=== PATIENT | female | born 1965 | race Caucasian/White ===

== ENCOUNTER → 2017-05-16 | Outpatient (CLI) | payer BC | LOC: RAD 09:06 | PROVIDERS: ATTEND Nurse Practitioner Family | DX: Z12.31 Encounter for screening mammogram for malignant neoplasm of breast (principal) | CPT/HCPCS: 77067 ==

== ENCOUNTER → 2018-05-21 | Outpatient (CLI) | payer BC ==
--- NOTE | 2018-05-21 15:26 | Diagnostic Imaging Report ---
INDICATION: Routine screening. COMPARISON: 05/16/2017 and 07/26/2011. TECHNIQUE: 2D and 3D bilateral screening mammography was performed with CAD. FINDINGS: Scattered fibroglandular densities are identified bilaterally. The parenchymal pattern is stable. No dominant mass or malignant appearing microcalcifications are seen. The axillae are unremarkable. IMPRESSION: No mammographic features suspicious for malignancy are identified. ACR BI-RADS Category 1: Negative. Result letter will be mailed to the patient. Note: At least 10% of breast cancer is not imaged by mammography. Dictated by: Dictated on workstation # [id number]
== END ==
LOC: RAD 07:54
PROVIDERS: ATTEND Nurse Practitioner Family
DX: Z12.31 Encounter for screening mammogram for malignant neoplasm of breast (principal)
CPT/HCPCS: 77067

== ENCOUNTER → 2019-05-23 | Outpatient (CLI) | payer BC ==
--- NOTE | 2019-05-23 15:37 | Diagnostic Imaging Report ---
INDICATION: Routine screening. COMPARISON: Comparison is made with prior mammograms from 05/21/2018 and 05/16/2017. 2-D and 3-D bilateral screening mammography was performed. The current study was also evaluated with a Computer Aided Detection (CAD) system. 3-D tomosynthesis was also performed and reviewed. FINDINGS: Scattered fibroglandular densities are identified bilaterally. There is a slightly prominent density in the medial aspect of the left breast anterior depth best seen on the CC view. No definite correlate is identified on the MLO view. Axillae are unremarkable. There is no malignant-appearing microcalcifications. IMPRESSION: Left breast density. Additional views are recommended. ACR BI-RADS Category 0: Incomplete. (Needs additional imaging evaluation). Result letter will be mailed to the patient. Note: At least 10% of breast cancer is not imaged by mammography. Dictated by: Dictated on workstation # [id number]
== END ==
LOC: RAD 08:03
PROVIDERS: ATTEND Nurse Practitioner Family
DX: Z12.31 Encounter for screening mammogram for malignant neoplasm of breast (principal)
CPT/HCPCS: 77067

== ENCOUNTER → 2019-05-29 | Outpatient (CLI) | payer BC ==
--- NOTE | 2019-05-29 12:08 | Diagnostic Imaging Report ---
EXAMINATION: Unilateral diagnostic left mammogram. INDICATION: Abnormal screening mammogram. The current study was also evaluated with a Computer Aided Detection (CAD) system. 3-D tomosynthesis was also performed and reviewed. FINDINGS: The recent screening mammogram performed on 05/23/2019 noted a slightly prominent density in the medial aspect of the left breast at anterior depth. This is only seen on the craniocaudal view. This finding does not seem as conspicuous on the compression view of this area or on the rolled views. Furthermore, it cannot be identified on the true lateral view of this exam. I suspect that this finding is related to fibroglandular tissue alone. Even so, I would recommend that an ultrasound be performed for further study. IMPRESSION: Ultrasound would be recommended for further evaluation of the density in the medial aspect of the left breast. ACR BI-RADS Category 0: Incomplete. (Needs additional imaging evaluation). Result letter will be mailed to the patient. Note: At least 10% of breast cancer is not imaged by mammography. Dictated by: Dictated on workstation # [id number]
--- NOTE | 2019-05-29 12:11 | Diagnostic Imaging Report ---
EXAMINATION: Ultrasound of the left breast. INDICATION: Abnormal mammogram. FINDINGS: The screening mammogram performed on 05/23/2019 noted a slightly prominent density in the medial aspect of the left breast. The diagnostic mammogram performed prior to this study failed to show any evidence for malignancy in this area. On this study, there is a small 6 x 6 x 3 mm fairly well-circumscribed avascular hyperechoic lesion in the 10:30 position roughly 6 cm from the nipple. I suspect that this is a small lipoma. There is no solid mass to suggest malignancy. Most likely, the density seen on the mammogram was related to fibroglandular tissue. IMPRESSION: There appears to be a small lipoma in the medial aspect of the breast. There is no evidence for malignancy; however, it may prove worthwhile to have a short-term (six-month) follow-up mammogram and ultrasound exam for continued evaluation. ACR BI-RADS Category 3: Probably benign findings. Dictated by: Dictated on workstation # [id number]
== END ==
LOC: RAD 09:40
PROVIDERS: ATTEND Nurse Practitioner Family
DX: R92.8 Other abnormal and inconclusive findings on diagnostic imaging of breast (principal)
CPT/HCPCS: 76642

== ENCOUNTER → 2019-11-20 | Outpatient (CLI) | payer BC ==
--- NOTE | 2019-11-20 15:25 | Diagnostic Imaging Report ---
INDICATION: Six-month follow-up left breast density. CORRELATION is made with prior mammograms from 05/23/2019 and 05/21/2018. Unilateral left 2-D and 3-D diagnostic mammography was performed with CAD. Density in the medial aspect of the left breast on the CC view is less prominent on today's study. No new mass is detected. No malignant appearing microcalcifications are seen. Left axilla is unremarkable. IMPRESSION: BI-RADS 0 Left breast density is slightly less prominent on today's exam. Even so, directed sonographic interrogation of this area is recommended and will be performed today. Dictated by: Dictated on workstation # [id number]
--- NOTE | 2019-11-20 16:09 | Diagnostic Imaging Report ---
INDICATION: Six-month follow-up left breast density. CORRELATION is made with diagnostic mammogram earlier same day as well as left breast ultrasound from 05/29/2019. Sonographic interrogation of the inner left breast was performed. Echogenic focus previously described at the 10:30 location 6 cm from the nipple is stable 5 mm x 3 mm x 6 mm. No internal vascularity is seen. IMPRESSION: BI-RADS Category 2. Stable left breast ultrasound. Patient may return to routine annual screening mammography. ACR BI-RADS Category 2: Benign findings. Result letter will be mailed to the patient. Note: At least 10% of breast cancer is not imaged by mammography. Dictated by: Dictated on workstation # [id number]
== END ==
LOC: RAD 14:13
PROVIDERS: ATTEND Nurse Practitioner Family
DX: N63.22 Unspecified lump in the left breast, upper inner quadrant (principal)
CPT/HCPCS: 76642; 77065; G0279

== ENCOUNTER → 2020-05-25 | Outpatient (CLI) | payer BC ==
--- NOTE | 2020-05-25 11:39 | Diagnostic Imaging Report ---
INDICATION: Routine screening. COMPARISON: 05/23/2019 and 05/21/2018. TECHNIQUE: 2D and 3D bilateral screening mammography was performed with CAD. FINDINGS: Scattered fibroglandular densities are identified bilaterally. The parenchymal pattern is stable. No mass or malignant appearing microcalcifications are seen. The axillae are unremarkable. IMPRESSION: No mammographic features suspicious for malignancy are identified. ACR BI-RADS Category 1: Negative. Result letter will be mailed to the patient. Note: At least 10% of breast cancer is not imaged by mammography. Dictated by: Dictated on workstation # [id number]
== END ==
LOC: RAD 08:30
PROVIDERS: ATTEND Nurse Practitioner Family
DX: Z12.31 Encounter for screening mammogram for malignant neoplasm of breast (principal)
CPT/HCPCS: 77063; 77067